=== PATIENT | female | born 1990 | race African-American/Black ===

== ENCOUNTER 2017-07-02 14:10 | Emergency (ER) | payer BC ==
[~2017-07-02] VITALS: Ht 175.3 cm; Wt 71.2 kg
[2017-07-02 15:04] LABS: URINE SOURCE CLEAN CATCH
[2017-07-02 15:07] LABS: URINE APPEARANCE CLOUDY; URINE BILIRUBIN NEG (NEG); URINE BLOOD NEG (NEG); URINE COLOR YELLOW; URINE GLUCOSE NEG (NEG); URINE KETONE NEG (NEG); URINE LEUKOCYTE ESTERASE 2+ (NEG); URINE NITRATE NEG (NEG); URINE PH 6.5 (5-8); URINE PROTEIN NEG (NEG); URINE SPECIFIC GRAVITY 1.015 (1.003-1.035); URINE UROBILINOGEN 0.2 MG/DL (NEG)
[2017-07-02 15:10] LABS: CULTURE INDICATED? YES; URINE BACTERIA AUWI 4+ (NEGATIVE); URINE SQUAMOUS EPITHELIAL CELL FEW /[HPF]; UWBCS1 AUWI 50-100 (0-5)
[2017-07-02 15:20] LABS: URINE MUCUS PRESENT
[2017-07-07 23:37] LABS: CHLAMYDIA TRACH Not Detected (Not Detected); N GONOR Detected (Not Detected)
== END 2017-07-02 18:50 | disposition home or self-care (01) ==
LOC: CED 14:10
PROVIDERS: Emergency Medicine
DX: N72 Inflammatory disease of cervix uteri (principal); N39.0 Urinary tract infection, site not specified
CPT/HCPCS: 81003; 84703; 87086; 87088; 87186; 87491; 87591; 87808; 87905; 96372; 99283; J0696